=== PATIENT | male | born 2000 | race Caucasian/White ===

== ENCOUNTER 2022-08-09 08:25 | Outpatient (CLI) | payer SELFPAY ==
[2022-08-09] MEDS ORDERED: EPINEPHrine 1 MG/ML AMP ONE (08:41)
[2022-08-09] MEDS ORDERED: Lidocaine 1% PF 5 ML VIAL ONE (08:42)
[2022-08-09] MEDS ORDERED: Sodium Bicarbonate 2.5 MEQ/5 ML VIAL ONE (08:42)
[2022-08-09 08:55] VITALS: TEMP 97.7
[2022-08-09] MEDS ORDERED: FLU VACC QS2022-23(6MOS UP)/PF 60 MCG/0.5 ML SYRINGE IM ONE (09:15)
[2022-08-09] MEDS ORDERED: Magnevist 469MG/ML 20 ML VIAL ONE (13:34)
== END 2022-08-09 08:26 | disposition home or self-care (01) ==
LOC: CSHRAD 08:25
PROVIDERS: ATTEND Orthopaedic Surgery
DX: S43.004A Unspecified dislocation of right shoulder joint, initial encounter (principal); S43.491A Other sprain of right shoulder joint, initial encounter; S43.491D Other sprain of right shoulder joint, subsequent encounter; S43.51XD Sprain of right acromioclavicular joint, subsequent encounter
CPT/HCPCS: 23350; A9579; J0171